=== PATIENT | male | born 1955 | race Caucasian/White ===

== ENCOUNTER 2022-09-03 07:40 | Observation (INO) ==
--- NOTE | 2022-07-30 10:09 | PAT Medication Instructions ---
Medication Instructions Date of Service July 30, 2022 Home Medications aspirin 81 mg capsule 81 mg PO QPM celecoxib 200 mg capsule (Celebrex) 200 mg PO BID PRN Pain elderberry fruit 200 mg capsule 200 mg PO QAM empagliflozin 10 mg tablet (Jardiance) 10 mg PO QAM gabapentin 300 mg capsule 300 mg PO BID glipizide 10 mg tablet 10 mg PO BID ketoconazole 2 % shampoo 1 ea topical DAILY PRN Skin Irritation ketoconazole 2 % topical cream 1 applic topical DAILY PRN Skin Irritation lactobacillus combination no.4 3 billion cell capsule (Probiotic) 3,000 mmu cells PO QAM losartan 100 mg-hydrochlorothiazide 25 mg tablet 1 tab PO QAM metformin 500 mg tablet,extended release 24hr 1,000 mg PO BID multivitamin 1 tab PO QAM pantoprazole 40 mg tablet,delayed release 40 mg PO QAM rosuvastatin 40 mg tablet 40 mg PO QPM zinc 50 mg tablet 50 mg PO QAM ASK your surgeon for instructions celecoxib 200 mg capsule (Celebrex) 200 mg PO BID PRN Pain STOP taking 2 weeks before surgery (or as soon as possible if surgery is within 2 weeks) elderberry fruit 200 mg capsule 200 mg PO QAM STOP taking 24 hours before surgery ketoconazole 2 % shampoo 1 ea topical DAILY PRN Skin Irritation ketoconazole 2 % topical cream 1 applic topical DAILY PRN Skin Irritation DO NOT take the morning of surgery glipizide 10 mg tablet 10 mg PO BID lactobacillus combination no.4 3 billion cell capsule (Probiotic) 3,000 mmu cells PO QAM losartan 100 mg-hydrochlorothiazide 25 mg tablet 1 tab PO QAM metformin 500 mg tablet,extended release 24hr 1,000 mg PO BID multivitamin 1 tab PO QAM zinc 50 mg tablet 50 mg PO QAM Take morning of surgery With a small sip of water, OTHERWISE NOTHING TO EAT OR DRINK AFTER MIDNIGHT: gabapentin 300 mg capsule 300 mg PO BID pantoprazole 40 mg tablet,delayed release 40 mg PO QAM Take evening before surgery aspirin 81 mg capsule 81 mg PO QPM (continue as normal unless told otherwise by surgeon) gabapentin 300 mg capsule 300 mg PO BID glipizide 10 mg tablet 10 mg PO BID metformin 500 mg tablet,extended release 24hr 1,000 mg PO BID rosuvastatin 40 mg tablet 40 mg PO QPM Other Notes STOP 3 DAYS BEFORE SURGERY empagliflozin 10 mg tablet (Jardiance) 10 mg PO QAM If you have any questions please call us at [phone] or [phone] or [phone] or [phone]
--- NOTE | 2022-08-01 13:11 | Anesthesiology Consultation ---
Date of Service August 01, 2022 Assessment & Plan (1) Encounter for pre-operative examination: - Patient acceptable risk for surgery pending surgeon-ordered PCP preop evaluation (Dr. Valencia Nicholson/[facility]- [place] TBD). - Cardiology office visit (06/19/22): "History of palpitations and dyspnea on exertion.. The results of his echocardiogram.. Stress test were reviewed with him.. Counseled that there does not appear to be any cardiac source for his symptoms at this time. So no further cardiac testing intervention is necessary at this time.. No cardiology followup will be scheduled. But he is welcome.. To see us in the future should the need arise. In terms of his preop risk assessment he was counseled I would place him as a low risk for any adverse perioperative cardiovascular event with his risk being approximately less than 1%. He was further counseled that no further cardiac testing intervention would further lower that risk." - Outpatient joint assessment: Pt currently scheduled for inpatient pathway. If surgeon requests review for outpatient joint pathway, patient is not recommended candidate for outpatient joint program from anesthesia standpoint. - COVID screening: Per assessment on 08/01: No current COVID-19 related symptoms. Travel screen negative. Patient vaccinated. Patient's tested positive 07/09. Pt did not develop symptoms. Covid testing done 08/01 ([place]) was negative. Pt requiring admission post-operatively. Plan for recheck with COVID Styles AM DOS due to possibility that patient may have a roommate. OR aware. Styles order placed. Chart Review Chart Review: Patient seen in Pre Admission Testing Teaching & Discussion Pre-Anesthesia Teaching/Discussion Notes: Instructed NPO after midnight before surgery,except medications with 15 cc of water. Medication instructions provided according to the PAT guidelines. History Surgery Operation Date: 09/03/22 12:45 Proposed Procedures p Left Total Knee Arthroplasty - Reji Rubio DO Height/Weight Height: 5 ft 10 in Weight: 131.3 kg Allergies Allergy/AdvReac Type Severity Reaction Status Date / Time scallops Allergy Severe Anaphylaxis Verified 07/30/22 07:36 lisinopril AdvReac Mild Cough Verified 07/30/22 07:36 Medications Home Medications Medication Instructions Recorded Confirmed Last Taken aspirin 81 mg capsule 81 mg PO QPM 07/30/22 07/30/22 Unknown celecoxib 200 mg capsule (Celebrex) 200 mg PO BID PRN Pain 07/30/22 07/30/22 Unknown elderberry fruit 200 mg capsule 200 mg PO QAM 07/30/22 07/30/22 Unknown empagliflozin 10 mg tablet 10 mg PO QAM 07/30/22 07/30/22 Unknown (Jardiance) gabapentin 300 mg capsule 300 mg PO BID 07/30/22 07/30/22 Unknown glipizide 10 mg tablet 10 mg PO BID 07/30/22 07/30/22 Unknown ketoconazole 2 % shampoo 1 ea topical DAILY PRN Skin 07/30/22 07/30/22 Unknown Irritation ketoconazole 2 % topical cream 1 applic topical DAILY PRN Skin 07/30/22 07/30/22 Unknown Irritation lactobacillus combination no.4 3 3,000 mmu cells PO QAM 07/30/22 07/30/22 Unknown billion cell capsule (Probiotic) losartan 100 1 tab PO QAM 07/30/22 07/30/22 Unknown mg-hydrochlorothiazide 25 mg tablet metformin 500 mg tablet,extended 1,000 mg PO BID 07/30/22 07/30/22 Unknown release 24hr multivitamin 1 tab PO QAM 07/30/22 07/30/22 Unknown pantoprazole 40 mg tablet,delayed 40 mg PO QAM 07/30/22 07/30/22 Unknown release rosuvastatin 40 mg tablet 40 mg PO QPM 07/30/22 07/30/22 Unknown zinc 50 mg tablet 50 mg PO QAM 07/30/22 07/30/22 Unknown Past Medical History Medical History Diabetes mellitus, type 2 Foot drop Left, occasional brace GERD (gastroesophageal reflux disease) History of skin cancer Hx of gout Hyperlipidemia Hypertension Kidney lesion Under surveillance Lyme disease s/p doxy course 05/2022 Neuropathy BLE Sleep apnea No device, did not tolerate CPAP Exercise / Class Metabolic Activity III < 4 Walking/Shop/Light housework (one FS (no CP, + SOB)) Past Family History Family History Other No family history of adverse response to anesthesia Past Surgical History Surgical History H/O foot surgery TARSAL TUNNEL RELEASE AND TENDON REPAIR>LEFT History of arthroscopy RT KNEE History of colonoscopy History of esophagogastroduodenoscopy (EGD) History of lumbar laminectomy History of tonsillectomy [place] teeth removed Past Anesthesia History No Hx of Anesthesia Complications and No Family Hx of Anesthesia Complications History of PONV No Hx of PONV and No Hx of Motion Sickness Social History Smoking Status: Never smoker tobacco type: smokeless tobacco Do You Dip or Chew Tobacco: No (Quit 15 years ago) Hx Alcohol Use: Yes alcohol intake frequency: holidays/special occasions only substance use type: does not use Review of Systems Patient denies chest pain, shortness of breath, fever, chills, cough, wheezing, palpitations. Physical Exam Vital Signs VITALS BP 121/72 P 58 TEMP 98.3 SP02 98%RA RESP 16 PHYSICAL Full cervical extension range of motion. Full TMJ range of motion. TMD 3 finger breaths Mallampati Score 3 Dentition: intact Lungs: clear throughout to auscultation Cardiac: regular rate and rhythm, no murmurs noted Spine: normal Carotid arteries: negative bruit Extremities: no edema Lab Results Anesthesia Preop Results Results Anesthesia Widget: WBC 5.50 K/ul (4.8-10.8) 08/01/22 Hgb 13.8 g/dl (14.0-18.0) L 08/01/22 Hct 41.9 % (40.1-51.0) 08/01/22 Plt 177 K/uL (130-400) 08/01/22 Na 137 mmol/L (136-145) 08/01/22 K 4.1 mmol/L (3.5-5.1) 08/01/22 Cl 103 mmol/L (98-107) 08/01/22 CO2 27 mmol/L (21-32) 08/01/22 BUN 19 mg/dl (6-23) 08/01/22 Creat 1.31 mg/dl (0.6-1.4) 08/01/22 Glucose Level 188 mg/dl (70-99(Fasting)) H 08/01/22 PT 10.9 Seconds (9.0-12.0) 08/01/22 PTT 26.8 Seconds (21.0-31.0) 08/01/22 INR 1.0 (0.9-1.1) 08/01/22 HA1c 7.4 % (4.5-5.6) H 08/01/22 Urine Color Yellow 08/01/22 Urine Appearance Clear (Clear) 08/01/22 Urine pH 7.5 (4.5-7.5) 08/01/22 Urine Specific [place] 1.020 (1.000-1.030) 08/01/22 Urine Protein Negative (Negative) 08/01/22 Urine Glucose (UA) 3+ (Negative) H 08/01/22 Urine Ketones Negative (Negative) 08/01/22 Urine Blood Negative (Negative) 08/01/22 Urine Nitrite Negative (Negative) 08/01/22 Urine Bilirubin Negative (Negative) 08/01/22 Urine Urobilinogen Negative (Negative) 08/01/22 Urine Leukocyte Esterase Negative (Negative) 08/01/22 Blood Type A Positive 08/01/22 Antibody Screen NEGATIVE 08/01/22 Testing Electrocardiogram Date: 06/07/22 Findings: + NSR @ (64) Chest X-Ray Date: 08/01/22 FINDINGS: PA and lateral chest radiographs are obtained. No prior studies are available for comparison at the time of dictation. The cardiomediastinal silhouette is top normal for projection noting atherosclerotic calcification of the thoracic aorta. There is bibasilar scarring/atelectasis. Nonspecific interstitial thickening is likely chronic. No airspace consolidation typical for pneumonia or pleural effusion is identified. There is no pneumothorax. The skeletal structures appear osteopenic. There are healed left-sided rib fractures. IMPRESSION: No active disease in the chest. Echocardiogram Date: 05/26/22 LVEF 55-59%. No regional motion abnormality. Mildly increased concentric LV wall thickness. Grade 1 diastolic dysfunction. Mildly enlarged aortic root (4.3 cm). No significant valvular disease. Stress Test Date: 05/26/22 Type: exercise Treadmill exercise test was normal. No EKG evidence of ischemia. 6.8 METS. Other Testing 14 day Holter monitor (02/18-03/04/22) Minimum heart rate of 47 bpm. Maximum heart rate 157 bpm. Average heart rate 76 bpm. Predominant underlying rhythm was sinus rhythm. 5 supraventricular tachycardia runs occurred. Isolated SVEs/SVE couplets/SVE triplets/isolated VEs/VE couplets/VE triplets were rare. Ventricular bigeminy was present. No a. fib. COVID-19 Risk Screen Screening Information COVID-19 Screen Date: 08/01/22 Exposure 21 Days Family/Household +COVID Last 21 Days: Yes Date of Family/Household +COVID Test: , 07/09 Exposure 10 Days Any COVID Exposure Last 10 Days: No Symptoms Last 10 Days Experienced COVID Sx Last 10 Days: No + COVID 0-90 Days COVID + in Last 0-90 Days: No
--- NOTE | 2022-08-15 16:15 | History & Physical Report ---
Date of Service August 15, 2022 date of surgery: 09/03/22 Procedure: Left Total Knee Arthroplasty Surgeon: Reji Rubio Assessment & Plan (1) Arthritis of knee, left: Plan: Further care discussed with patient and at this point in time has failed conservative measures and would like to proceed with a left total knee replacement. Plan on discharge will be home with home health physical therapy. DVT prophylaxiswith TEDs, SCDs and will also place on aspirin 81 mg p.o. b.i.d. for a month postop. Patient will have follow up appointment in our office two weeks post op for staple/suture removal and re-evaluation. Patient otherwise has no other questions or concerns. The risks and benefits have been discussed including, but not limited to, risk of infection, nerve injury, stiffness, loss of motion, failure to improve, etc. Reasonable outcomes and options of treatment were discussed. An explanation of appropriate alternatives to the procedure that may be advantageous were discussed and their risks and benefits, as well as the risks and benefits of not proceeding with treatment. I offered to answer any additional inquiries concerning the treatment involved. All the patient's questions were answered. The patient is agreeable, understanding of the treatment plan and alternatives, and wishes to proceed with the treatment plan. History of Present Illness Chief Complaint: left knee pain Primary Care Provider: Willis Kumar MD Don is a pleasant 67-year-old male presents for preop evaluation prior to his left total knee replacement. He had a longstanding history of left knee pain which is well conservative measures including corticosteroid injection as well as viscosupplementation. He has complaints of pain instability clicking catching and locking of his knee. This point time is failed conservative measures like proceed with a left total knee replacement Allergies Allergy/AdvReac Type Severity Reaction Status Date / Time scallops Allergy Severe Anaphylaxis Verified 07/30/22 07:36 lisinopril AdvReac Mild Cough Verified 07/30/22 07:36 Home Medications Medication Instructions Recorded Confirmed Type aspirin 81 mg capsule 81 mg PO QPM 07/30/22 07/30/22 History celecoxib 200 mg capsule (Celebrex) 200 mg PO BID PRN Pain 07/30/22 07/30/22 History elderberry fruit 200 mg capsule 200 mg PO QAM 07/30/22 07/30/22 History empagliflozin 10 mg tablet 10 mg PO QAM 07/30/22 07/30/22 History (Jardiance) gabapentin 300 mg capsule 300 mg PO BID 07/30/22 07/30/22 History glipizide 10 mg tablet 10 mg PO BID 07/30/22 07/30/22 History ketoconazole 2 % shampoo 1 ea topical DAILY PRN Skin 07/30/22 07/30/22 History Irritation ketoconazole 2 % topical cream 1 applic topical DAILY PRN Skin 07/30/22 07/30/22 History Irritation lactobacillus combination no.4 3 3,000 mmu cells PO QAM 07/30/22 07/30/22 History billion cell capsule (Probiotic) losartan 100 1 tab PO QAM 07/30/22 07/30/22 History mg-hydrochlorothiazide 25 mg tablet metformin 500 mg tablet,extended 1,000 mg PO BID 07/30/22 07/30/22 History release 24hr multivitamin 1 tab PO QAM 07/30/22 07/30/22 History pantoprazole 40 mg tablet,delayed 40 mg PO QAM 07/30/22 07/30/22 History release rosuvastatin 40 mg tablet 40 mg PO QPM 07/30/22 07/30/22 History zinc 50 mg tablet 50 mg PO QAM 07/30/22 07/30/22 History Past Med/Surg History Medical History Diabetes mellitus, type 2 Foot drop Left, occasional brace GERD (gastroesophageal reflux disease) History of skin cancer Hx of gout Hyperlipidemia Hypertension Kidney lesion Under surveillance Lyme disease s/p doxy course 05/2022 Neuropathy BLE Sleep apnea No device, did not tolerate CPAP Surgical History H/O foot surgery TARSAL TUNNEL RELEASE AND TENDON REPAIR>LEFT History of arthroscopy RT KNEE History of colonoscopy History of esophagogastroduodenoscopy (EGD) History of lumbar laminectomy History of tonsillectomy [place] teeth removed Family History Other No family history of adverse response to anesthesia Social History Smoking Status: Never smoker Second Hand Exposure: Yes; Hx Alcohol Use: Yes Preferred Language: Bulgarian Crematorium Operator Required: No Beliefs That Will Affect Care: None Current Living Situation: Spouse Feels Safe at Home: Yes Assistive Devices: Brace/Splint/Immobilizer and Glasses Review of Systems Review of Systems: All systems reviewed & are unremarkable except as noted in HPI & below Constitutional: no fever, no chills and no sweats Respiratory: no cough and no dyspnea Cardiovascular: no chest pain, no dyspnea and no orthopnea Gastrointestinal: no abdominal pain, no nausea and no vomiting Musculoskeletal: as per Subjective / HPI Physical Exam Physical Exam: HT: 5ft 10in WT: 131.3 kg Constitutional: WD/WN, vitals as above no acute distress Respiratory: normal respiratory effort, lungs clear to auscultation no respiratory distress, no labored breathing and does not use accessory muscles Cardiovascular: RRR, no murmur, no edema Gastrointestinal (Abdomen): normal bowel sounds, soft, nontender, no hepatosplenomegaly Musculoskeletal: Knee: + knee abnormal to inspection (LEFT KNEE: ), + effusion (+1 effusion), + limited ROM of knee (ROM 0/3/110), + knee ROM with crepitation, + joint line tenderness (medial joint line) and + Khushbu's sign positive; no deformity, no skin erythema, no ecchymosis, no valgus laxity, no varus laxity, anterior drawer test negative, Roselyn's sign negative and pivot shift test negative Results & Data Results & Data ([facility]) Diagnostic Findings Left Knee X-ray: left knee series confirm advanced degenerative changes to the left knee, greatest medial compartments and patellofemoral joint, showing joint space narrowing, osteophyte formation and subchondral sclerosis. no acute bony pathology noted.
[~2022-09-03 07:40] MED LIST: ACETAMINOPHEN 500 MG TAB PO SCH; BUPIVACAINE 0.25% 30 ML VIAL ONE; BUPIVACAINE 0.5 % 5 MG/1 ML PF 10ML VIAL ONE; CeleBREX 200 MG CAP PO SCH; DEXAMETHASONE SOD INJ 4 MG/ML VIAL ONE; EPINEPHrine INJ 1 MG/ML AMP ONE; FAMOTIDINE 20 MG TAB PO SCH; GABAPENTIN 300 MG CAP PO SCH; LR 500ML BOLUS, THEN 15ML/HR IV SCH; METOCLOPRAMIDE HCL 10 MG TABLET PO SCH; ROPIVACAINE 0.5% HCL/PF 150 MG, BUPIVACAINE 0.75% MPF 20 ML, EPINEPHrine 30MG/30ML (OR ... INSTIL SCH; dexAMETHasone 4 MG TAB PO SCH
[2022-09-03] MEDS ORDERED: MIDAZOLAM HCL 1 MG/ML 2ML VIAL ONE ×2 (09:08→11:20)
[2022-09-03] MEDS ORDERED: fentaNYL citrate 100 MCG/2 ML VIAL ONE (09:08)
[2022-09-03] MEDS ORDERED: PROPOFOL IV EMULSION 10 MG/ML 20 ML VIAL IV ONE ×3 (09:08)
--- NOTE | 2022-09-03 09:25 | History & Physical Bridge Note ---
Date of Service September 03, 2022 History & Physical Bridge Note I have examined the patient, reviewed the History & Physical and in the interval since the performance of the History & Physical I have noted the following changes of clinical significance: no changes noted
[2022-09-03] MEDS ORDERED: TRANEXAMIC ACID / 0.7% NACL 1,000 MG/100 ML BAG IV STA (09:38)
[2022-09-03] MEDS ORDERED: TRANEXAMIC ACID / 0.7% NACL 1000MG/100ML BAG IV ONE (09:41)
[2022-09-03] MEDS ORDERED: ATROPINE SULFATE 0.1 MG/ML 10ML SYR IV PRN (10:07)
[2022-09-03] MEDS ORDERED: ONDANSETRON INJ 2 MG/ML 2 ML VIAL IV PRN ×2 (10:07→14:01)
[2022-09-03] MEDS ORDERED: ePHEDrine sulfate 50 MG/ML AMP IV PRN (10:07)
[2022-09-03] MEDS ORDERED: fentaNYL citrate 100 MCG/2 ML VIAL IV PRN (10:07)
[2022-09-03] MEDS ORDERED: ORTHO JOINT ANESTHETIC ONE (10:10)
[2022-09-03] MEDS ORDERED: TRANEXAMIC ACID / 0.7% NACL 1,000 MG/100 ML BAG IV ONE ×2 (10:17)
--- NOTE | 2022-09-03 12:23 | Operative Report ---
Post Operative Report Pre & Post Diagnosis Operation Date: 09/03/22 09:50 Pre-Op Diagnosis: Osteoarthritis Left Knee Post-Op Diagnosis: Osteoarthritis Left Knee I identified the patient and participated in the time-out.: Yes Procedure Operation Date: 09/03/22 09:50 Actual Procedures p Left Total Knee Arthroplasty(Left) utilizing [email or web address] journey 2 patient matched total knee arthroplasty size femur 8 tibia 7 polyeleven patella 32 oval- Reji Rubio DO Surgeon Reji Rubio DO Tapper Balance Wheel Screw Hole Layton MILLER Estimated Blood Loss 5 Findings Consistent with Post-Op Diagnosis Patient presents with severe end-stage tricompartmental degenerative joint disease of the left knee no response to conservative management patient failed attempted conservative management patient has eburnated [id number] marginal osteophyte subchondral cystic changes subchondral sclerosis with a moderate to large effusion Specimens Bone and cartilage Drains Medium bore Hemovac Anesthesia Type MAC Spinal Regional Complications none Disposition Accompanied Patient To Recovery: No Disposition: Recovery Room Indications Patient presents with severe end-stage tricompartmental DJD having failed attempted conservative manage occluding physical therapy anti-inflammatories relative rest activity modification corticosteroid injections viscosupplemen tation the above intraoperative findings were noted Description of Procedure After proper prepping and draping of the left lower extremity anterior midline incision was made over the region of the extensor extensor mechanism after meticulous hemostasis was obtained and maintained in subcutaneous tissues a medial parapatellar incision was made The patella was subluxed lateralward the medial lateral gutter were cleaned from any hypertrophic synovitis and scar tissue of the distal femoral block was placed and the distal femoral osteotomy cut was made subsequently the chamfers anterior and posterior osteotomy cuts were made utilizing the 4-in-1 block the tibia was subsequently subluxed anteriorward medial and ateral meniscal remnants were excised in their entirety remnants of the anterior and posterior cruciate ligaments were excised in their entirety excellent exposure of the proximal tibia was obtained the tibial osteotomy guide was placed on the proximal tibial osteotomy cut was made once again the knee was irrigated with copious amounts of sterile saline solution the patella was subsequently everted lateralward thickened scar tissue around the patella was removed the patella was subsequently cut utilizing a freehand technique and was drilled prepared for final preparation and placement of patella socially flexion-extension gaps were checked and the equal and symmetric trials were placed to the appropriate femoral and tibial trials with poly-spacer being placed for equal flexion and extension gaps and full range of motion inc luding extension to 0 and flexion to 140 the trial components after having been taken to recovery range of motion was subsequently removed meticulous hemostasis was obtained and maintained subsequently a knee block injection of joint cocktail including ropivacaine 0.5% 150 mg. Bupivacaine 0.5% epinephrine 1- 200,030 mL's toradol 30 mg dexamethasone 4 mg ketamine 10 mg clonidine 100 micrograms normal saline solution 30 mg was infiltrated into the soft tissues of the posterior knee medial lateral gutters and periosteal synovium special attention was paid to protect neurovascular structures at all times subsequently trial components having been removed the knee was irrigated with sterile saline solution. debris was removed the proximal tibia was subsequently prepared and was made ready for the placement of the tibial component tibial component was also cemented and tamped into position the femoral component was subsequently placed and cemented in the position the patellar component was subsequently cemented in position because hemostasis once again obtained and maintained wound having been thoroughly irrigated with debridement and debridement lavage was performed as well as a medial parapatellar incision closed with #1 Vicryl in interrupted fashion subcutaneous was closed with #2 Vicryl skin was closed with skin clips. PA-C was necessary for prepping and drapping as well as wound closure of deep fascia Sub cutaneous tissue and skin and was necessary for the case. A sterile compressive dressing was placed patient was taken to recovery in stable condition of report dictated by Ramiro I attest to the content of the Intraoperative Record and any orders documented therein. Any exceptions are noted below.Due to the complex nature of the procedure, the entire surgery was performed with the operational assistance of Layton MILLER. The occupational therapist assistant, under direct supervision, was involved in the actual performance of all aspects of the surgical procedure including hemostasis, tissue retraction and incision, instrument management, patient positioning, and wound closure. I attest to the content of the Intraoperative Record and any orders documented therein. Any exceptions are noted below.
[2022-09-03] MEDS ORDERED: HYDROmorphone INJ 0.5 MG/0.5 ML SYR IV SCH (14:00)
[2022-09-03] MEDS ORDERED: HYDROmorphone INJ 0.5 MG/0.5 ML SYR IV PRN (14:01)
[2022-09-03] MEDS ORDERED: bisacodyL 10 MG SUPP PR PRN (14:01)
[2022-09-03] MEDS ORDERED: NALOXONE HCL 0.4 MG/1 ML VIAL/CARP IV PRN (14:01)
[2022-09-03] MEDS ORDERED: MAGNESIUM HYDROXIDE SUSP 30 ML UDC PO PRN (14:01)
[2022-09-03] MEDS ORDERED: KETOCONAZOLE 2% CR 15 GM TUBE EXT PRN (14:01)
--- NOTE | 2022-09-03 14:32 | Anesthesiology Progress Note ---
Date of Service September 03, 2022 Anesthesia Post Procedure Vital Signs Vital Signs: Temp Pulse Pulse Resp BP Pulse Ox O2 Del Method 09/03/22 14:15 54 L 17 105/57 L 97 Room Air 09/03/22 14:00 56 L 16 104/66 96 Room Air 09/03/22 13:50 55 L 18 109/63 96 Room Air 09/03/22 13:40 36.4 C L 58 L 16 110/64 97 Room Air 09/03/22 13:20 65 14 101/64 95 Oxymask 09/03/22 13:30 66 18 117/67 94 Room Air 09/03/22 13:11 36.7 C 76 18 111/63 97 Oxymask 09/03/22 08:01 36.7 C 52 L 20 143/73 H 98 Room Air 09/03/22 08:01 Room Air O2 Flow Rate 09/03/22 14:15 09/03/22 14:00 09/03/22 13:50 09/03/22 13:40 09/03/22 13:20 6 09/03/22 13:30 09/03/22 13:11 6 09/03/22 08:01 09/03/22 08:01 Pain Intensity Left Knee: Pain Intensity: 0 Transfer of Care Handoff Completed per policy Notes Mental Status: alert / awake / arousable Patient Amnestic to Procedure: Yes Nausea / Vomiting: adequately controlled Pain: adequately controlled Airway Patency, RR, SpO2: stable & adequate BP & HR: stable & adequate Hydration State: stable & adequate Neuraxial Anesthesia: was administered and sensory block is resolving Anesthetic Complications: no major complications apparent
--- NOTE | 2022-09-03 14:56 | XRay Report ---
LEFT KNEE 2 VIEWS History: Left total knee arthroplasty. Degenerative arthritis. Postop. FINDINGS: The patient is status post a left total knee arthroplasty. The hardware is intact. No fract ure or dislocation. Surgical drains are in place. IMPRESSION: Left total knee arthroplasty. No evidence for hardware complication. ACT 112: Negative or not required by law. Electronically signed by: Naveen Gardner M.D. 09/03/2022 2:54 PM
[2022-09-03] MEDS ORDERED: PHARMACY GLYCEMIC MGMT CONSULT PRN ×2 (16:13→18:06)
[2022-09-03] MEDS ORDERED: GLUCOSE 10 TAB/TUBE PO PRN (16:45)
[2022-09-03] MEDS ORDERED: GLUCAGON FOR INJ 1 MG VIAL IM PRN (16:45)
[2022-09-03] MEDS ORDERED: GLUCOSE 40% GEL 15 GM TUBE PO PRN (16:45)
[2022-09-03] MEDS ORDERED: DEXTROSE 50% 50 ML SYRINGE IV PRN (16:45)
[2022-09-03] MEDS ORDERED: CARBOHYDRATES FOR HYPOGLYCEMIA PO PRN (16:45)
[2022-09-03] MEDS ORDERED: LANTUS PER UNIT CHARGE SQ ONE ×2 (16:45→22:00)
[2022-09-03] MEDS: SODIUM CHLORIDE 0.9% 1000ML 1,000 ML IV SCH (17:28)
[2022-09-03] MEDS: oxyCODONE HCL IR 5 MG TAB (IMMEDIATE RELEASE) PO PRN ×2 (17:28→22:07)
[2022-09-03] MEDS: ACETAMINOPHEN 500 MG TAB PO SCH (17:29)
[2022-09-03] MEDS: INSULIN ASPART PER UNIT SC SCH ×2 (18:30→20:46)
--- NOTE | 2022-09-03 18:37 | Pharmacy Report ---
Pharmacy Glycemic Short Note 2 - Date of Service September 03, 2022 - Glycemic Short BSG Results (Last 24 hours): 09/03/22 09/03/22 09/03/22 08:02 13:15 17:15 POC Glucose 165 H 198 H 333 H* 09/03/22 17:17 POC Glucose 288 H OUTPATIENT ANTIDIABETIC REGIMEN: * Metformin ER 1000 mg PO BID * Glipizide 10 mg PO BID * Jardiance 10 mg PO AM * HbA1c = 7.4% (08/01/22) ASSESSMENT: * 67 yo M admitted postoperatively following a left total knee arthroplasty today. Type 2 diabetic at home controlled on oral agents only. Most recent A1c is acceptable. Ordered a T2DM diet and tolerating. Received 8 mg of PO dexa methasone preop but no ongoing steroids. * Fasting BSG was 165 mg/dL this AM. Intraop BSG was 198 mg/dL. Upon transfer to the floor BSG was 333 mg/dL with a repeat of 288 mg/dL. * Ordered Lantus and Novolog based on approximately weight/stress of 2. Will order overnight checks for the first night. * Hold oral agents for now. PLAN FOR INPATIENT GLYCEMIC CONTROL: * Hold outpatient oral diabetes medications * Basal insulin * Lantus 20 units SC x 1 * Bolus insulin * NovoLog per scale ACHS or Q6hrs while NPO * Goal Range: Low 110 mg/dL - High 140 mg/dL * Correction Factor: 25 mg/dL/unit * Nutritional / Prandial insulin per carb ratio of 1 unit per 8 grams CHO consumed
--- NOTE | 2022-09-03 19:26 | Hospitalist Consultation ---
Date of Consultation September 03, 2022 History of Present Illness Reason for Consultation: Post-op medical management Requesting Physician: Reji Rubio DO Attending Physician: Dr. Riley Michelle Allergies Allergy/AdvReac Type Severity Reaction Status Date / Time scallops Allergy Severe Anaphylaxis Verified 09/03/22 07:59 lisinopril AdvReac Mild Cough Verified 09/03/22 07:59 Home Medications Medication Instructions Recorded Confirmed Type aspirin 81 mg capsule 81 mg PO QPM 07/30/22 09/03/22 History celecoxib 200 mg capsule (Celebrex) 200 mg PO BID PRN Pain 07/30/22 09/03/22 History elderberry fruit 200 mg capsule 200 mg PO QAM 07/30/22 09/03/22 History empagliflozin 10 mg tablet 10 mg PO QAM 07/30/22 09/03/22 History (Jardiance) gabapentin 300 mg capsule 300 mg PO BID 07/30/22 09/03/22 History glipizide 10 mg tablet 10 mg PO BID 07/30/22 09/03/22 History ketoconazole 2 % shampoo 1 ea topical DAILY PRN Skin 07/30/22 09/03/22 History Irritation ketoconazole 2 % topical cream 1 applic topical DAILY PRN Skin 07/30/22 09/03/22 History Irritation lactobacillus combination no.4 3 3,000 mmu cells PO QAM 07/30/22 09/03/22 History billion cell capsule (Probiotic) losartan 100 1 tab PO QAM 07/30/22 09/03/22 History mg-hydrochlorothiazide 25 mg tablet metformin 500 mg tablet,extended 1,000 mg PO BID 07/30/22 09/03/22 History release 24hr multivitamin 1 tab PO QAM 07/30/22 09/03/22 History pantoprazole 40 mg tablet,delayed 40 mg PO QAM 07/30/22 09/03/22 History release rosuvastatin 40 mg tablet 40 mg PO QPM 07/30/22 09/03/22 History zinc 50 mg tablet 50 mg PO QAM 07/30/22 09/03/22 History Patient History Medical History Diabetes mellitus, type 2 Foot drop Left, occasional brace GERD (gastroesophageal reflux disease) History of skin cancer Hx of gout Hyperlipidemia Hypertension Kidney lesion Under surveillance Lyme disease s/p doxy course 05/2022 Neuropathy BLE Sleep apnea No device, did not tolerate CPAP Surgical History H/O foot surgery TARSAL TUNNEL RELEASE AND TENDON REPAIR>LEFT History of arthroscopy RT KNEE History of colonoscopy History of esophagogastroduodenoscopy (EGD) History of lumbar laminectomy History of tonsillectomy [place] teeth removed Family History Other No family history of adverse response to anesthesia Social History Smoking Status: Never smoker Second Hand Exposure: Yes; Do You Dip or Chew Tobacco: No (Quit 15 years ago); Hx Alcohol Use: Yes Preferred Language: Irish Addressograph Operator Required: No Beliefs That Will Affect Care: None Current Living Situation: Spouse Feels Safe at Home: Yes Safety Concerns: Feels Safe At This Time Assistive Devices: Brace/Splint/Immobilizer and Glasses Assistive Devices Comment: READING GLASSES Results & Data Results & Data ([facility]) Vital Signs (Past 12 Hours) Vital Signs Temp Pulse Pulse Resp BP Pulse Ox O2 Del Method 09/03/22 19:21 36.8 C 80 18 110/64 96 Room Air 09/03/22 17:00 36.8 C 64 20 127/73 96 Room Air 09/03/22 16:29 36.8 C 63 18 120/73 97 Room Air 09/03/22 16:00 36.8 C 59 L 20 113/71 97 Room Air 09/03/22 15:30 36.3 C L 58 L 17 119/73 97 Room Air 09/03/22 15:00 56 L 14 100/70 96 Room Air 09/03/22 14:30 53 L 12 107/64 95 Room Air 09/03/22 14:15 54 L 17 105/57 L 97 Room Air 09/03/22 14:00 56 L 16 104/66 96 Room Air 09/03/22 13:50 55 L 18 109/63 96 Room Air 09/03/22 13:40 36.4 C L 58 L 16 110/64 97 Room Air 09/03/22 13:20 65 14 101/64 95 Oxymask 09/03/22 13:30 66 18 117/67 94 Room Air 09/03/22 13:11 36.7 C 76 18 111/63 97 Oxymask 09/03/22 08:01 36.7 C 52 L 20 143/73 H 98 Room Air 09/03/22 08:01 Room Air O2 Flow Rate 09/03/22 19:21 09/03/22 17:00 09/03/22 16:29 09/03/22 16:00 09/03/22 15:30 09/03/22 15:00 09/03/22 14:30 09/03/22 14:15 09/03/22 14:00 09/03/22 13:50 09/03/22 13:40 09/03/22 13:20 6 09/03/22 13:30 09/03/22 13:11 6 09/03/22 08:01 09/03/22 08:01 PG Care Time/CCT Total # of Minutes Spent Total Time Spent with Patient: Total time spent is greater than 50% in coordination of care (as documented) at patient's floor/unit and/or counseling patient: Coding
[2022-09-03] MEDS: ceFAZolin 2000MG 2,000 MG/15 ML SYR IV SCH (20:21)
[2022-09-03] MEDS: GABAPENTIN 300 MG CAP PO SCH (20:33)
[2022-09-03] MEDS: DOCUSATE SODIUM 100 MG CAP PO SCH (20:33)
[2022-09-03] MEDS: ASPIRIN 81 MG ECTAB PO SCH (20:33)
[2022-09-03] MEDS ORDERED: metFORMIN HCL ER 500 MG TABCR PO SCH (21:00)
[2022-09-03] MEDS ORDERED: SENNA 8.6 MG TAB PO SCH (21:00)
[2022-09-03] MEDS ORDERED: ROSUVASTATIN CALCIUM 20 MG TAB PO SCH (21:00)
[2022-09-03] MEDS ORDERED: glipiZIDE 5 MG TAB PO SCH (21:00)
--- NOTE | 2022-09-03 23:46 | Hospitalist Consultation ---
Date of Consultation September 03, 2022 Assessment & Plan (1) Arthritis of knee, left: Final Assessment and Recommendations as follows : OA left knee status post surgery Some postop discomfort hypertension, stable hyperlipidemia on statin Rx NIMESH (currently not on CPAP) DM2 on oral medications, BSG markedly elevated postop, hemoglobin A1c of 7.4 last July 2022 hx NAFLD cirrhosis, stable pancreatic lesion on outpatient imaging, outpatient endoscopy contemplated next month chronic anemia, at baseline on preop lab work Analgesia as per postop Ortho orders Tylenol not to exceed 2 g daily secondary to chronic liver disease Hold home diuretic until patient chemistries back in a.m. Pharmacy glycemic control consultation as per Ortho orders DVT prophylaxis. SCDs as per postop orders Thank you very much for this consultation. Dr. Diehl will follow patient's progress. Text document was generated using [employer] voice recognition software. It may contain grammatical or spelling errors. Kindly contact undersigned for clarification of any documentation item in question. History of Present Illness Reason for Consultation: Medical management Requesting Physician: Dr. Rubio Attending Physician: Reji Rubio DO History of Present Illness PCP : Dr. Nicholson History obtained from patient and records. Medical history significant for hypertension, hyperlipidemia, NIMESH (currently not on CPAP), DM2 on oral medications, NAFLD cirrhosis, pancreatic lesion, chronic anemia (baseline hemoglobin of 13). Patient underwent elective left total knee arthroplasty today. Left knee pain somewhat intolerable. Patient denies chest pain or shortness of breath. 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 Allergies Allergy/AdvReac Type Severity Reaction Status Date / Time scallops Allergy Severe Anaphylaxis Verified 09/03/22 07:59 [facility] AdvReac Intermediate Vomiting Verified 09/04/22 02:09 lisinopril AdvReac Mild Cough Verified 09/03/22 07:59 Home Medications Medication Instructions Recorded Confirmed Type aspirin 81 mg capsule 81 mg PO QPM 07/30/22 09/03/22 History celecoxib 200 mg capsule (Celebrex) 200 mg PO BID PRN Pain 07/30/22 09/03/22 History elderberry fruit 200 mg capsule 200 mg PO QAM 07/30/22 09/03/22 History empagliflozin 10 mg tablet 10 mg PO QAM 07/30/22 09/03/22 History (Jardiance) gabapentin 300 mg capsule 300 mg PO BID 07/30/22 09/03/22 History glipizide 10 mg tablet 10 mg PO BID 07/30/22 09/03/22 History ketoconazole 2 % shampoo 1 ea topical DAILY PRN Skin 07/30/22 09/03/22 History Irritation ketoconazole 2 % topical cream 1 applic topical DAILY PRN Skin 07/30/22 09/03/22 History Irritation lactobacillus combination no.4 3 3,000 mmu cells PO QAM 07/30/22 09/03/22 History billion cell capsule (Probiotic) losartan 100 1 tab PO QAM 07/30/22 09/03/22 History mg-hydrochlorothiazide 25 mg tablet metformin 500 mg tablet,extended 1,000 mg PO BID 07/30/22 09/03/22 History release 24hr multivitamin 1 tab PO QAM 07/30/22 09/03/22 History pantoprazole 40 mg tablet,delayed 40 mg PO QAM 07/30/22 09/03/22 History release rosuvastatin 40 mg tablet 40 mg PO QPM 07/30/22 09/03/22 History zinc 50 mg tablet 50 mg PO QAM 07/30/22 09/03/22 History Patient History Medical History Diabetes mellitus, type 2 Foot drop Left, occasional brace GERD (gastroesophageal reflux disease) History of skin cancer Hx of gout Hyperlipidemia Hypertension Kidney lesion Under surveillance Lyme disease s/p doxy course 05/2022 Neuropathy BLE Sleep apnea No device, did not tolerate CPAP Surgical History H/O foot surgery TARSAL TUNNEL RELEASE AND TENDON REPAIR>LEFT History of arthroscopy RT KNEE History of colonoscopy History of esophagogastroduodenoscopy (EGD) History of lumbar laminectomy History of tonsillectomy [place] teeth removed Family History Other No family history of adverse response to anesthesia Social History Smoking Status: Never smoker Second Hand Exposure: Yes; Do You Dip or Chew Tobacco: No (Quit 15 years ago); Hx Alcohol Use: Yes Preferred Language: Gibraltarian Anne[employer] Furnace Tender Required: No Beliefs That Will Affect Care: None Current Living Situation: Spouse Feels Safe at Home: Yes Safety Concerns: Feels Safe At This Time Assistive Devices: Brace/Splint/Immobilizer and Glasses Assistive Devices Comment: READING GLASSES Review of Systems Review of Systems: As per HPI, all other systems reviewed and negative Physical Exam Physical Exam: GENERAL: Comfortable, pleasant, morbidly obese, no respiratory distress SKIN: Normal color, warm HEENT: Alopecia, [place] palpebral conjunctivae, no ptosis, dry buccal mucosa NECK : Supple, short neck, no tenderness CHEST : Decreased breath sounds, no tenderness HEART : RRR, no obvious murmurs ABDOMEN: Some distention, nontender EXTREMITIES : SCDs over lower extremities, no overt LE tenderness, no other conspicuous deformities noted NEUROLOGIC : Coherent, no facial asymmetry, no other gross focality Results & Data Results & Data ([facility]) Vital Signs (Past 12 Hours) Vital Signs Temp Pulse Pulse Resp BP Pulse Ox O2 Del Method 09/03/22 22:01 36.8 C 70 18 114/69 95 Room Air 09/03/22 19:21 36.8 C 80 18 110/64 96 Room Air 09/03/22 17:00 36.8 C 64 20 127/73 96 Room Air 09/03/22 16:29 36.8 C 63 18 120/73 97 Room Air 09/03/22 16:00 36.8 C 59 L 20 113/71 97 Room Air 09/03/22 15:30 36.3 C L 58 L 17 119/73 97 Room Air 09/03/22 15:00 56 L 14 100/70 96 Room Air 09/03/22 14:30 53 L 12 107/64 95 Room Air 09/03/22 14:15 54 L 17 105/57 L 97 Room Air 09/03/22 14:00 56 L 16 104/66 96 Room Air 09/03/22 13:50 55 L 18 109/63 96 Room Air 09/03/22 13:40 36.4 C L 58 L 16 110/64 97 Room Air 09/03/22 13:20 65 14 101/64 95 Oxymask 09/03/22 13:30 66 18 117/67 94 Room Air 09/03/22 13:11 36.7 C 76 18 111/63 97 Oxymask O2 Flow Rate 09/03/22 22:01 09/03/22 19:21 09/03/22 17:00 09/03/22 16:29 09/03/22 16:00 09/03/22 15:30 09/03/22 15:00 09/03/22 14:30 09/03/22 14:15 09/03/22 14:00 09/03/22 13:50 09/03/22 13:40 09/03/22 13:20 6 09/03/22 13:30 09/03/22 13:11 6 Laboratory Results Laboratory Results POC Glucose 286 mg/dl (70-99) H 09/03/22 20:34 SARS-CoV-2, RNA, NAAT NEGATIVE (NEGATIVE) 09/03/22 Unknown Impressions Knee X-Ray 09/03/22 13:27 LEFT KNEE 2 VIEWS History: Left total knee arthroplasty. Degenerative arthritis. Postop. FINDINGS: The patient is status post a left total knee arthroplasty. The hardware is intact. No fracture or dislocation. Surgical drains are in place. IMPRESSION: Left total knee arthroplasty. No evidence for hardware complication. ACT 112: Negative or not required by law. Electronically signed by: Naveen Gardner M.D. 09/03/2022 2:54 PM
[2022-09-04] MEDS: INSULIN ASPART PER UNIT SC SCH ×4 (00:29→12:33)
[2022-09-04] MEDS: ACETAMINOPHEN 500 MG TAB PO SCH ×2 (00:45→01:09)
[2022-09-04] MEDS: oxyCODONE HCL IR 5 MG TAB (IMMEDIATE RELEASE) PO PRN ×3 (02:44→10:58)
[2022-09-04] MEDS: SODIUM CHLORIDE 0.9% 1000ML 1,000 ML IV SCH (03:31)
[2022-09-04] MEDS: ceFAZolin 2000MG 2,000 MG/15 ML SYR IV SCH (04:01)
--- NOTE | 2022-09-04 07:28 | Orthopedic Progress Note ---
Date of Service September 04, 2022 Assessment & Plan (1) History of total left knee replacement: Plan: POD #1 s/p left TKA pt/ot dvt proph with ILANA/SCD/ASA plan for d/c home with HHPT Admission and Anticipated Discharge Date Admission Date: September 03, 2022 Subjective POD #1 s/p Left TKA Review of Systems Constitutional: no fever, no chills and no sweats Respiratory: no cough and no dyspnea Cardiovascular: no chest pain and no dyspnea Gastrointestinal: no abdominal pain, no nausea and no vomiting Physical Exam Physical Exam: Vital Signs Temp 36.7 C 09/04/22 03:58 Pulse 68 09/04/22 03:58 Resp 20 09/04/22 03:58 BP 123/67 09/04/22 03:58 Pulse Ox 97 09/04/22 03:58 O2 Del Method 09/04/22 03:58 O2 Flow Rate 6 09/03/22 13:20 Intake & Output 09/03/22 09/04/22 09/04/22 18:59 06:59 18:59 Intake Total 1672.5 / 3222.5 1550 / 3222.5 Output Total 565 / 1290 725 / 1290 Balance 1107.5 / 1932.5 825 / 1932.5 Weight 129.4 kg Intake: IV 272.5 / 1272.5 1000 / 1272.5 Lactated Ringe r's 1,000 ml @ 15 0 / 0 mls/hr IV .Q24 H ARMIN Rx#: [id number] Sodium Chlorid e 0.9% 1000ML 1, 1000 / 1000 000 ml @ 100 m ls/hr IV .Q10H ARMIN Rx#:[id number] Tranexamic Aci d / 0.7% NaCl 1, 200 / 200 000 mg In 100 ml @ 600 mls/hr IV ONE ONE Rx# :[id number] ceFAZolin 3000 MG 72.5 ml @ 130 72.5 / 72.5 mls/hr IV PREO P ARMIN Rx#: [id number] IV Perioperative 1400 / 1400 Oral 550 / 550 Output: Urine 500 / 1200 700 / 1200 Estimated Blood Loss 35 / 35 Drain Output 30 / 55 25 / 55 Left Knee 20 / 20 Left Knee Hemo vac 30 / 35 5 / 35 Other: # Unmeasured Voi ds 2 Weight Measureme nt Method Standing Scale Musculoskeletal: Left Leg: NVDI, calf SNT, negative ashish sign. DP palpable, able to wiggle toes/ankle movement without difficulty. dressing clean dry and intact. Results & Data ([facility]) Vital Signs (Past 12 Hours) Vital Signs Temp Pulse Resp BP Pulse Ox O2 Del Method 09/04/22 03:58 36.7 C 68 20 123/67 97 Room Air 09/03/22 20:30 Room Air 09/03/22 22:01 36.8 C 70 18 114/69 95 Room Air Diagnostic Findings Laboratory Results POC Glucose 211 mg/dl (70-99) H 09/04/22 04:00 SARS-CoV-2, RNA, NAAT NEGATIVE (NEGATIVE) 09/03/22 Unknown Impressions Knee X-Ray 09/03/22 13:27 LEFT KNEE 2 VIEWS History: Left total knee arthroplasty. Degenerative arthritis. Postop. FINDINGS: The patient is status post a left total knee arthroplasty. The hardware is intact. No fracture or dislocation. Surgical drains are in place. IMPRESSION: Left total knee arthroplasty. No evidence for hardware complication. ACT 112: Negative or not required by law. Electronically signed by: Naveen Gardner M.D. 09/03/2022 2:54 PM
[2022-09-04] MEDS ORDERED: ACETAMINOPHEN 325 MG TAB PO SCH (08:00)
[2022-09-04] MEDS: ASPIRIN 81 MG ECTAB PO SCH (08:25)
[2022-09-04] MEDS: GABAPENTIN 300 MG CAP PO SCH (08:25)
[2022-09-04] MEDS: DOCUSATE SODIUM 100 MG CAP PO SCH (08:25)
[2022-09-04] MEDS ORDERED: LOSARTAN/HCTZ 50/12.5MG TAB PO SCH (09:00)
[2022-09-04] MEDS ORDERED: ZINC SULFATE 220 MG CAPSULE PO SCH (09:00)
[2022-09-04] MEDS ORDERED: ADVANCED PROBIOTIC 1250 MG CAPSULE PO SCH (09:00)
[2022-09-04] MEDS ORDERED: PANTOprazole 40 MG TAB PO SCH (09:00)
[2022-09-04] MEDS ORDERED: LANTUS PER UNIT CHARGE SQ SCH (09:00)
[2022-09-04] MEDS ORDERED: MULTIVITAMIN TAB PO SCH (09:00)
[2022-09-04] MEDS ORDERED: LOSARTAN POTASSIUM 25 MG TAB PO SCH (09:00)
[2022-09-04 09:24] LABS: Hematocrit (blood only) 34.8 % (40.1-51.0); Hemoglobin 11.8 g/dl (14.0-18.0); Mean Corpuscular Hemoglobin 27.6 pg (25.0-34.0); Mean Corpuscular Hgb Conc 33.9 g/dL (32.0-36.0); Mean Corpuscular Volume 81.5 fL (80.0-100.0); Mean Platelet Volume 11.1 fL (9.4-12.4); Platelet Count 180 K/uL (130-400); RDW Coefficient of Variation 13.2 % (11.5-14.5); Red Blood Count 4.27 M/uL (4.63-6.08); White Blood Count 13.43 K/ul (4.8-10.8)
[2022-09-04 09:49] LABS: Calcium 8.4 mg/dl (8.5-10.1); Creatinine Clr Calc Pharmacy 77.8 ml/min; Est GFR (African American) 67.6 ml/min; Est GFR (Non-African American) 58.3 ml/min; Potassium 4.3 mmol/L (3.5-5.1)
--- NOTE | 2022-09-04 10:55 | Hospitalist Progress Note ---
Date of Service September 04, 2022 Assessment & Plan (1) Arthritis of knee, left: (2) History of total left knee replacement: Plan: S/P left knee TKA performed by dr. Rubio on 09/03/22 No postop complication Pain control PT/OT eval Hemoglobin 11.8 today Continue incentive spirometry Fall precaution Hypertension BP stable Continue home BP medication Hyperlipidemia Continue statin NIMESH currently not on CPAP DM2 Most recent Hba1c 7.4 on 07/2022 Continue oral diabetes medication on discharge Disposition As per ortho DVT px as per ortho Admission and Anticipated Discharge Date Admission Date: September 03, 2022 Subjective Pt was seen and examined for postop left knee TKA Sitting in bed with no acute distress with physical therapist at bedside Pt said that pain is tolerable Denies any chest pain, palpitation, dizziness and SOB Review of Systems Review of Systems: All systems reviewed & are unremarkable except as noted in Subjective Physical Exam Physical Exam: General- No acute distress Head- atraumatic Eyes- PERRL, EOMI, ENT- oropharynx clear Neck- supple, no JVD Lungs- clear to auscultation Heart- regular rhythm; no murmur Abdomen- normal bowel sounds, soft, nontender Extremities- no calf tenderness, L knee wrapped with esvin bandage Neuro- alert, oriented x 3; PERRL, EOMI; no facial palsy; no dysarthria Skin- warm & dry Results & Data Results & Data ([facility]) Vital Signs (Past 12 Hours) Vital Signs Temp Pulse Resp BP BP Pulse Ox O2 Del Method 09/04/22 07:51 36.7 C 56 L 20 115/70 99 Room Air 09/04/22 03:58 36.7 C 68 20 123/67 97 Room Air
--- NOTE | 2022-09-11 15:08 | Discharge Summary ---
Date of Service September 11, 2022 Admission HPI Per Admitting Provider Erlinda is a pleasant 67-year-old male presents for preop evaluation prior to his left total knee replacement. He had a longstanding history of left knee pain which is well conservative measures including corticosteroid injection as well as viscosupplementation. He has complaints of pain instability clicking catching and locking of his knee. This point time is failed conservative measures like proceed with a left total knee replacement Admission Exam Per Admitting Provider Physical Exam: HT: 5ft 10in WT: 131.3 kg Constitutional: WD/WN, vitals as above no acute distress Respiratory: normal respiratory effort, lungs clear to auscultation no respiratory distress, no labored breathing and does not use accessory muscles Cardiovascular: RRR, no murmur, no edema Gastrointestinal (Abdomen): normal bowel sounds, soft, nontender, no hepatosplenomegaly Musculoskeletal: Knee: + knee abnormal to inspection (LEFT KNEE: ), + effusion (+1 effusion), + limited ROM of knee (ROM 0/3/110), + knee ROM with crepitation, + joint line tenderness (medial joint line) and + Khushbu's sign positive; no deformity, no skin erythema, no ecchymosis, no valgus laxity, no varus laxity, anterior drawer test negative, Roselyn's sign negative and pivot shift test negative Principal Diagnosis Ostearthritis Left Knee Discharge Data Allergies Allergy/AdvReac Type Severity Reaction Status Date / Time scallops Allergy Severe Anaphylaxis Verified 09/03/22 07:59 dulaglutide [[facility]] AdvReac Intermediate Vomiting Verified 09/04/22 02:09 lisinopril AdvReac Mild Cough Verified 09/03/22 07:59 Consultations 09/01/22 09:52 Consult Hospitalist Routine Procedures Performed Operation Date: 09/03/22 09:50 Actual Procedures p Left Total Knee Arthroplasty(Left) - Reji Corona DO Ordered Studies 09/03/22 05:00 US - OR guided needle placemen Routine Hospital Course (1) Arthritis of knee, left: Patient:ERLINDA MARIA JR Admit Date:09/03/22 MR#:[id number] Att Phy:Reji Corona,D.O. Acct ID:[id number] Maryanne Phy:Valencia Nicholson DO Date:1955 Fam Phy: Age:67 Location:3E Sex:M Room/Bed:[facility] cc: ~ *NOTICE TO RECEIVING CONSTITUTION PARTY/AGENCY This information is strictly Confidential and protected under [place] law. [place] law prohibits you from making any further disclosure of this information unless further disclosure is expressly permitted by the written consent of the person to whom it pertains or is authorized by law. A general authorization for the release of medical or other information is not sufficient for this purpose. Hospital accepts no responsibility if the information is made available to any other person, INCLUDING THE PATIENT. Date of Service September 04, 2022 Assessment & Plan (1) History of total left knee replacement: Plan: POD #1 s/p left TKA pt/ot dvt proph with ILANA/SCD/ASA plan for d/c home with HHPT Admission and Anticipated Discharge Date Admission Date: September 03, 2022 Subjective POD #1 s/p Left TKA Review of Systems Constitutional: no fever, no chills and no sweats Respiratory: no cough and no dyspnea Cardiovascular: no chest pain and no dyspnea Gastrointestinal: no abdominal pain, no nausea and no vomiting Physical Exam Physical Exam: Vital Signs Temp 36.7 C 09/04/22 03:58 Pulse 68 09/04/22 03:58 Resp 20 09/04/22 03:58 BP 123/67 09/04/22 03:58 Pulse Ox 97 09/04/22 03:58 O2 Del Method 09/04/22 03:58 O2 Flow Rate 6 09/03/22 13:20 Intake & Output 09/03/22 09/04/22 09/04/22 18:59 06:59 18:59 Intake Total 1672.5 / 3222.5 1550 / 3222.5 Output Total 565 / 1290 725 / 1290 Balance 1107.5 / 1932.5 825 / 1932.5 Weight 129.4 kg Intake: IV 272.5 / 1272.5 1000 / 1272.5 Lactated Ringe r's 1,000 ml @ 15 0 / 0 mls/hr IV .Q24 H ARMIN Rx#: [id number] Sodium Chlorid e 0.9% 1000ML 1, 1000 / 1000 000 ml @ 100 m ls/hr IV .Q10H ARMIN Rx#:[id number] Tranexamic Aci d / 0.7% NaCl 1, 200 / 200 000 mg In 100 ml @ 600 mls/hr IV ONE ONE Rx# :[id number] ceFAZolin 3000 MG 72.5 ml @ 130 72.5 / 72.5 mls/hr IV PREO P ARMIN Rx#: [id number] IV Perioperative 1400 / 1400 Oral 550 / 550 Output: Urine 500 / 1200 700 / 1200 Estimated Blood Loss Drain Output Left Knee Left Knee Hemo vac Other: # Unmeasured Voi ds 2 Weight Measureme nt Method Standing Scale Musculoskeletal: Left Leg: NVDI, calf SNT, negative ashish sign. DP palpable, able to wiggle toes/ankle movement without difficulty. dressing clean dry and intact. Results & Data ([facility]) Vital Signs (Past 12 Hours) Vital Signs Temp Pulse Resp BP Pulse Ox O2 Del Method 09/04/22 03:58 36.7 C 68 20 123/67 97 Room Air 09/03/22 20:30 Room Air 09/03/22 22:01 36.8 C 70 18 114/69 95 Room Air Diagnostic Findings Laboratory Results POC Glucose 211 mg/dl (70-99) H 09/04/22 04:00 SARS-CoV-2, RNA, NAAT NEGATIVE (NEGATIVE) 09/03/22 Unknown Impressions Knee X-Ray 09/03/22 13:27 LEFT KNEE 2 VIEWS History: Left total knee arthroplasty. Degenerative arthritis. Postop. FINDINGS: The patient is status post a left total knee arthroplasty. The hardware is intact. No fracture or dislocation. Surgical drains are in place. IMPRESSION: Left total knee arthroplasty. No evidence for hardware complication. ACT 112: Negative or not required by law. Electronically signed by: Naveen Gardner M.D. 09/03/2022 2:54 PM Signed By: <Electronically signed by Darren Castro PA-C> 09/04/22 [id number] <Electronically signed by Satish Odonnell M.D.> 09/04/22 [id number] Total Time Total Time Spent Total Time Spent (In Minutes): 5 Discharge Plan Discharge Items Patient Disposition: Home - Home Health Services Reason For Visit: Osteoarthritis Left Knee Discharge Diagnosis: LEFT TOTAL KNEE REPLACEMENT Activity: Per Instructions section Non-emergency contact: Surgeon Call non-emergency contact if: you have any medication questions, your temperature is above 101, your wound has increased redness, your wound has increased drainage and your wound pain has increased Follow-up/Referrals: Valencia Nicholson, [Primary Care Provider] - Diet: Regular Addtl Attending Provider Instructions: ACTIVITY RECOMMENDATIONS: SELF CARE INSTRUCTIONS AFTER TOTAL KNEE REPLACEMENT A. You may need to continue a physical therapy program after discharge from the hospital. There are several options available to you. Your doctor will assist you in selecting the best one for you. 1. An out-patient facility 2 to 3 times a week for therapy or home therapy. 2. Continue working on all exercises taught to you in the hospital. Your goals should be to increase bending of your knee to 90 degrees and beyond and to fully straighten your knee. B. You may progress at your own pace from walking with a walker or crutches to a cane; then to no assistive devices. C. Make walking a part of your daily routine. Be up as much as comfortable with rest periods throughout the day. Rest with leg elevation is very important. Use the ice wrap frequently for the first 3-4 weeks. D. There are no restrictions on activities. You may ride in a car, shop, participate in ice cream vault worker and all social activities. E. Wear the long elastic stockings (ILANA hose) 20 hours a day for 2 weeks after surgery. They can be removed several times a day for laundering and for a bath. F. You may shower, no tub baths until cleared by your doctor. SPECIAL CARE INSTRUCTIONS: VERY IMPORTANT TO READ AND REVIEW A. There are a few signs you need to watch for after you are home. Call [facility] if you notice any of the followin. Increased severe knee pain. Some pain is expected especially when you exercise. 2. Increased swelling in your leg or knee; pain or swelling of the calf mu scle in either lower leg. 3. Any fluid drainage from the incision. 4. Shortness of breath or chest pain. B. Please call [facility] at if you have any concerns or questions about your operation or recovery. The doctor or his nurse will return your call promptly. C. You must take antibiotics before dental work, bladder, bowel or other surgery. Your doctor will provide you with a permanent care to carry describing this precaution. IMPORTANT: * REMEMBER TO TAKE ASPIRIN, 81 MG, TWICE DAILY FOR 4 WEEKS UNLESS OTHERWISE DIRECTED. THIS IS YOUR BLOOD THINNER. * HIGH RISK PATIENTS MAY BE PRESCRIBED A STRONGER BLOOD THINNER. THIS WILL BE PROVIDED AT DISCHARGE. * CALL IF INCREASED PAIN, REDNESS, DRAINAGE OR FEVER GREATER THAT 101. * WEAR ILANA HOSE 20 HOURS PER DAY FOR 2 WEEKS. * YOANNA Dressing- This is a large suction dressing covering your incision. This will help pull any excess drainage from the wound and allow your incision to heal properly. You may shower with this if you can keep the unit outside of the shower. If any bleeding or leakage is noted please call your doctor's office. This will remain on your incision for 7 days and then should be removed. This can be done yourself or by the home nursing staff if applicable. The entire unit is disposable once removed. Once removed, keep incision clean and dry. If redness or drainage is noted, please call your surgeon. ONCE YOANNA IS REMOVED, FOLLOW THESE INSTRUCTIONS: DERMABOND Prineo- This is a mesh tape dressing that is covered with glue. It should remain in place until the incision is properly healed, usually 10-14 days. This dressing is designed to naturally slough off. You may trim the excess mesh tape as it peels off. Incision may be briefly wet in a shower. Dry immediately by blotting with a clean, dry towel. Do not bath or swim until instructed by your doctor. Do not scratch, rub, or pick at the dressing. Do not apply any topical ointments or lotions until dressing is completely removed and/or instructed by your doctor. There may be a small piece of suture material at one end of your incision. Do not pull or trim this. If it is bothersome or catching on clothing, you may cover it with a band-aid. FOLLOW UP VISIT: If appointment is not already scheduled: Please call [facility] to make a follow-up appointment for 2 weeks after your surgery at . Pending Studies at Discharge: No Stand-Alone Forms: [employer], Smoking Cessation Medications and DC Order Prescriptions: New acetaminophen 325 mg Tablet 650 mg PO Q8H 21 Days Qty: 126 0RF aspirin 81 mg Tablet,Delayed Release (Dr/Ec) 81 mg PO BID 30 Days Qty: 60 0RF oxycodone 5 mg Tablet 5 - 10 mg PO Q6H PRN (Reason: pain) Qty: 30 0RF Rx Instructions: ongoing therapy, supervising dr lety corona. max 6 tabs in 24 hours docusate sodium 100 mg Capsule 100 mg PO BID 10 Days Qty: 20 0RF cefadroxil 500 mg capsule 500 mg PO BID 14 Days Qty: 28 0RF Continued multivitamin Tablet 1 tab PO QAM glipizide 10 mg Tablet 10 mg PO BID losartan-hydrochlorothiazide 100-25 mg Tablet 1 tab PO QAM pantoprazole 40 mg Tablet,Delayed Release (Dr/Ec) 40 mg PO QAM gabapentin 300 mg Capsule 300 mg PO BID zinc 50 mg Tablet 50 mg PO QAM rosuvastatin 40 mg Tablet 40 mg PO QPM metformin 500 mg Tablet Extended Release 24hr 1,000 mg PO BID Probiotic 3 billion cell Capsule 3,000 mmu cells PO QAM Rx Instructions: administer with a meal Jardiance 10 mg Tablet 10 mg PO QAM ketoconazole 2 % Shampoo 1 ea TOPICAL DAILY PRN (Reason: Skin Irritation) ketoconazole 2 % Cream 1 applic TOPICAL DAILY PRN (Reason: Skin Irritation) Discontinued celecoxib [Celebrex] 200 mg Capsule 200 mg PO BID PRN (Reason: Pain) Elderberry 200 mg Capsule 200 mg PO QAM Label Comments: GUMMY aspirin 81 mg Capsule 81 mg PO QPM Discharge Orders: Discharge Order (Routine); Ordered 09/04/22 Ordered By: Darren Castro Admission Data Admit Date/Time: 09/03/22 13:27 Attending Provider: Reji Corona Admit Provider: Reji Corona Primary Care Provider: Valencia Nicholson Other Providers: Camden Driscoll Other Interventions: Discharge Summary Assessment (RN) Last Done: 09/04/22 11:29
== END 2022-09-04 13:05 | disposition home health service (06) ==
LOC: ASU 07:40 → PACUINP 07:40 → 3E 16:02